=== PATIENT | male | born 2000 | race Caucasian/White ===

== ENCOUNTER 2023-06-30 18:06 | Emergency (ER) | payer OTHER, SELFPAY ==
[2023-06-30 18:15] VITALS: BP 138/81; PULSE 85; RESP 16; TEMP 37.1; O2SAT 100
--- NOTE | 2023-06-30 18:15 | ED.GENADULT ---
HPI - General Adult General Chief complaint: Syncope Stated complaint: Blacked Out @ Home Time Seen by Provider: 06/30/23 18:35 Mode of arrival: ambulatory Limitations: no limitations History of Present Illness HPI narrative: 23-year-old male presents concern for episode of ?blacking out? today reports this afternoon he had an episode of blacking out that lasted for 25 minutes. He describes the event as falling to the ground not being able to move but being completely aware of his surroundings. He denies any headache, chest pain, shortness of breath. Denies any current symptoms. Reports this happened once when he was a teenager and he wore a rn cardiac for 30 days with no findings. MD complaint: Syncope Related Data Home Medications Medication Instructions Recorded Confirmed No Home Medications 06/30/23 06/30/23 Review of Systems Review of Systems: CONSTITUTIONAL: Denies malaise, chills, sweats, or fever. EYES: Denies visual changes, redness, or discharge. ENT: Denies rhinorrhea, congestion, sinus pain, otalgia or sore throat. CARDIOVASCULAR: Denies chest pain, palpitations, or edema. RESPIRATORY: Denies cough or dyspnea. GASTROINTESTINAL: Denies abdominal pain, nausea, vomiting, diarrhea, bloody, or mucous stools. GENITOURINARY: Denies dysuria or hematuria. SKIN: Denies rash or itching. MUSCULOSKELETAL: Denies back pain, joint pain, or myalgia. NEUROLOGIC: Denies numbness, weakness, or headache. Reports episode of ?blacking out? PSYCHIATRIC: Denies anxiety or depression. All systems reviewed & are unremarkable except as noted in HPI and below PMFSH Comments At time of signature, agree with nursing past medical, surgical, social and family history. There is no relevant family history pertinent to the presenting complaint Exam Narrative: GENERAL: Well-appearing, well-nourished, and in no acute distress. HEAD: Normocephalic, atraumatic. EYES: PERRLA, sclera clear, and EOMI. No nystagmus. ENT: Nares clear, turbinates pink, no rhinorrhea or epistaxis. Mucous membranes moist. TM pearly rodriguez with sharp light reflex bilaterally; no tragal tenderness. Oropharynx without erythema or lesions. Tonsils not enlarged and without exudate. NECK: Supple. No lymphadenopathy. No jugular venous distension, thyromegaly, or carotid bruits. Carotids were easily palpable bilaterally. CHEST: No respiratory distress. Clear to auscultation. No bony deformities, no asymmetry. Speaks in full sentences. HEART: Regular rate and rhythm. No murmur heard. Normal peripheral pulses. ABDOMEN: Soft, nontender, nondistended, normal active bowel sounds, no palpable masses. EXTREMITIES: Normal range of motion. No edema. Normal strength and sensation. SKIN: Warm, dry, no visible rash. NEURO: Alert and oriented x3. No focal deficits. Cranial nerves II through XII grossly intact PSYCH: Normal mood and affect Course Course Emergency Course: I advised patient that he should seek further evaluation in the emergency room and should not operate a motor vehicle given his episode today. Patient reports he would rather follow up with his primary care doctor, he did not comment on whether not he would drive a vehicle against my advice. Anticipatory guidance given. Patient agrees to follow-up as directed and is aware of reasons to seek care at the emergency department. Portions of this record may have been created with voice recognition software Level of Care: Express Care Visit Vital Signs Vital signs: Reviewed. Medical Decision Making MDM Narrative Medical decision making narrative: The patient was evaluated by myself in the emergency department. History is obtained from patient who is an independent historian and physical exam was performed.? Available medical records were reviewed at this time. ? Exam findings and imaging show no acute concerns or changes; patient is non-toxic appearing and is in no distress. Patient's history warrants further evaluat
--- NOTE | 2023-06-30 18:28 | ECG_ITS ---
SEE SCANNED COPY FOR CONFIRMED REPORT MTDD
== END 2023-06-30 18:55 | disposition left against medical advice (07) ==
PROVIDERS: Emergency Provider Nurse Practitioner
DX: R55 Syncope and collapse (principal)
CPT/HCPCS: 93005; 99213; G0463